=== PATIENT | male | born 1970 | race Asian ===

== ENCOUNTER 2019-07-13 11:25 | Observation (INO) | payer OTHER ==
[~2019-07-13] VITALS: Ht 165.1 cm; Wt 106.6 kg
[2019-07-13] VITALS (9 sets, daily range): BP systolic 152–186; BP diastolic 84–114; TEMP 97.2–98.1; Ht 165.1 cm; Wt 106.6 kg
[2019-07-13 12:18] LABS: PLATELET COUNT 233 K/uL (142-355)
[2019-07-13 12:26] LABS: POTASSIUM 3.9 mmol/L (3.6-5.2); SODIUM 140 mmol/L (136-145)
[2019-07-13 20:55] LABS: PARTIAL THROMBOPLASTIN TIME 31.8 SECONDS (24.5-33.6)
[2019-07-14] VITALS: BP 165/96; TEMP 98
[2019-07-14 04:00] VITALS: BP 154/90; TEMP 97.9
[2019-07-14 05:42] LABS: POTASSIUM 3.6 mmol/L (3.6-5.2); SODIUM 140 mmol/L (136-145)
[2019-07-14 06:23] LABS: PLATELET COUNT 213 K/uL (142-355)
[2019-07-14 08:00] VITALS: BP 139/78; TEMP 97.8
[2019-07-14 12:00] VITALS: BP 152/84; TEMP 98.9
== END 2019-07-14 17:13 | disposition home or self-care (01) ==
LOC: ED 11:25 → MED/SURG 14:10
PROVIDERS: Family Medicine; ADMIT Emergency Medicine
DX: I16.0 Hypertensive urgency (principal); M79.602 Pain in left arm; E66.01 Morbid (severe) obesity due to excess calories; E11.9 Type 2 diabetes mellitus without complications; Z91.19 Patient's noncompliance with other medical treatment and regimen; R51 Headache
CPT/HCPCS: 36415; 80048; 80053; 82550; 82553; 82728; 83036; 83540; 83550; 84484; 85027; 85610; 85730; 93005; 93306; 96360; 96361; 96372; 99220; 99284; G0378; J1650

== ENCOUNTER 2019-11-26 08:19 | Outpatient (CLI) | payer OTHER | END 2019-11-26 20:41 | disposition home or self-care (01) | LOC: RESP 08:19 | DX: R01.1 Cardiac murmur, unspecified (principal) ==

== ENCOUNTER 2020-10-05 15:22 | Outpatient (CLI) | payer OTHER | END 2020-10-05 20:00 | disposition home or self-care (01) | LOC: INF 15:22 | PROVIDERS: ATTEND Internal Medicine | DX: Z23 Encounter for immunization (principal) ==

== ENCOUNTER 2020-10-25 13:00 | Outpatient (CLI) | payer OTHER | END 2020-10-25 21:19 | disposition home or self-care (01) | LOC: INF 13:00 | PROVIDERS: ATTEND Internal Medicine | DX: Z23 Encounter for immunization (principal) | CPT/HCPCS: 96372 ==